=== PATIENT | female | born 1980 | race Caucasian/White ===

== ENCOUNTER → 2021-02-04 | Outpatient (CLI) | payer BC ==
--- NOTE | 2021-02-04 17:18 | KCIC ---
MR LUMBAR SPINE WO [id number] History: Reason: RADICULOPATHY, HIP GROIN AREA PAIN / Spl. Instructions: Pain and catching in both hi ps. / History: Lower back pain with crepitus, especially when walking. Right hip pain. Technique: Multiplanar, multi sequential MR imaging was performed of the lumbar spine. Comparison: None Findings: Slight grade 1 anterolisthesis L4 on L5. Normal vertebral body height. No acute fracture. Minimal deg enerative endplate edema L1 inferior endplate. Increased or signal within L4 and L5 pedicles, right g reater than left. Conus terminates at the normal location. No evidence of nerve root clumping. Left posterior paraspinal subcutaneous tissues at the L4 level cystic lesion measures 2.6 x 1.4 cm. P osterior dependent paraspinal edema. T10-T11: Central disc protrusion. Minimal canal narrowing. Mild facet arthropathy. No neuroforaminal narrowing. T11-T12: Small disc bulge. No canal or neuroforaminal narrowing. T12-L1: Minimal disc bulge. Mild facet arthropathy. No canal or neuroforaminal narrowing. L1-L2: Minimal disc bulge. Mild facet arthropathy. No canal or neuroforaminal narrowing. L2-L3: Small disc bulge. Mild facet arthropathy. No canal or neuroforaminal narrowing. L3-L4: Minimal disc bulge. Mild facet arthropathy. No canal or neuroforaminal narrowing. L4-L5: Small disc bulge. Advanced facet arthropathy. Mild canal narrowing. Subarticular recess narro wing. No neuroforaminal narrowing. L5-S1: Minimal disc bulge. Moderate facet arthropathy. No canal or neuroforaminal narrowing. Impression: 1. Multilevel thoracolumbar spondylosis most prominent L4-5. 2. Grade 1 anterolisthesis L4 on L5 due to advanced facet arthropathy contributing to mild canal lang rowing. 3. Edema within L4 and L5 pedicles, right greater than left, may relate to degenerative changes or s tress reaction. 4. Left posterior paraspinal subcutaneous cystic lesion at the L4 level, may represent epidermal inc lusion cyst. If persistent clinical concern, ultrasound can further evaluate. Electronically signed by: Juan Alberto Shaffer DO (02/04/2021 5:15 PM) [id number]
--- NOTE | 2021-02-05 10:04 | KCIC ---
Exam Date: 02/04/2021 2:30 PM MRI LEFT LOWER EXTREMITY JOINT WITHOUT Indication: Reason: RADICULOPATHY, HIP GROIN AREA PAIN / Spl. Instructions: Bilateral hip pain and lo cking. / History: Lower back pain with crepitus, especially when walking. Bilateral hip pain.. TECHNIQUE: Multiplanar MR images of the left hip were performed without intravenous contrast. FINDINGS: There are mild degenerative changes in the left hip with a degenerative cyst in the superior acetabul um. Evaluation of the labrum is suboptimal in the absence of intra-articular contrast, but no defini te labral tear is identified. There is no definite evidence for femoral acetabular impingement. Bon e marrow signal is otherwise within normal limits. No acute fracture visualized. No avascular necrosi s or joint effusion. Increased signal at the insertion of the gluteal tendons on the greater trochanter is consistent with mild tendinosis. Iliopsoas, hamstring, and gluteal tendons are otherwise intact. IMPRESSION: Mild degenerative changes in the left hip without acute fracture or avascular necrosis. Mild gluteal insertional tendinosis noted. Electronically signed by: Zachary Ocampo MD (02/05/2021 10:02 AM) [facility]
--- NOTE | 2021-02-05 10:04 | KCIC ---
Exam Date: 02/04/2021 2:30 PM MRI RIGHT LOWER EXTREMITY JOINT WITHOUT Indication: Reason: RADICULOPATHY, HIP GROIN AREA PAIN / Spl. Instructions: Bilateral hip pain and lo cking. / History: Lower back pain with crepitus, especially when walking. Right hip pain.. TECHNIQUE: Multiplanar MR images of the right hip were performed without intravenous contrast. FINDINGS: Mild degenerative changes are noted with a small degenerative cyst along the posterior acetabulum. E valuation of the labrum is suboptimal in the absence of intra-articular contrast, though no definite labral tear is identified. Bone marrow signal is otherwise within normal limits. There is no defini te evidence for femoral acetabular impingement. No acute fracture visualized. No avascular necrosis or joint effusion. Mild increased signal at the insertion of the gluteal tendons on the greater trochanter is consistent with mild tendinosis. Iliopsoas, hamstring, and gluteal tendons are otherwise intact. The bony pelvis is intact. SI joints are grossly unremarkable. Degenerative changes are seen at the pubic symphysis. IMPRESSION: Mild degenerative changes in the right hip without acute fracture or avascular necrosis. Mild gluteal insertional tendinosis. Electronically signed by: Zachary Ocampo MD (02/05/2021 10:02 AM) [facility]
== END ==
LOC: KCIC MRI 13:59
PROVIDERS: ATTEND Orthopaedic Surgery
DX: M17.0 Bilateral primary osteoarthritis of knee (principal); M25.852 Other specified joint disorders, left hip; M25.851 Other specified joint disorders, right hip; M76.02 Gluteal tendinitis, left hip; M47.815 Spondylosis without myelopathy or radiculopathy, thoracolumbar region; M48.8X7 Other specified spondylopathies, lumbosacral region; M48.061 Spinal stenosis, lumbar region without neurogenic claudication; M43.16 Spondylolisthesis, lumbar region; M51.27 Other intervertebral disc displacement, lumbosacral region; R60.0 Localized edema; G95.89 Other specified diseases of spinal cord
CPT/HCPCS: 72148; 73721